=== PATIENT | female | born 1955 | race Caucasian/White ===

== ENCOUNTER 2023-06-30 16:08 | Emergency (ER) | payer MEDICARE, SELFPAY ==
--- NOTE | ~2023-06-30 | XR_ITS ---
EXAMINATION: XR lumbar spine 2-3V DATE: 06/30/2023 17:22 INDICATION: Low back pain TECHNIQUE: Anteroposterior and lateral views of the lumbar spine, and cone-down lateral view of the l umbosacral junction were obtained. COMPARISON: None. FINDINGS: There are 6 mm of anterolisthesis of L4 on L5 and 2 mm of anterolisthesis of L3 on L4. Ther e is no fracture. There is mild loss of intervertebral disc space height at L1-2 and L2-3. The verteb ral body heights are maintained. Small degenerative osteophytes project from the anterior endplates o f multiple vertebral bodies. There is moderate to severe facet joint osteoarthritis of the lower lumb ar spine. Calcified atherosclerosis is noted. There is mild spondylosis of the visualized lower thora cic spine. IMPRESSION: 1. Moderate lumbar spondylosis without acute findings. Reviewed, dictated and finalized at location F.
[2023-06-30 16:17] VITALS: BP 143/56; PULSE 62; RESP 16; TEMP 36.4; O2SAT 99
--- NOTE | 2023-06-30 17:11 | ED.GENADULT ---
HPI - General Adult General Chief complaint: Back Pain/Injury Stated complaint: Back Pain Source: patient Mode of arrival: ambulatory Limitations: no limitations History of Present Illness HPI narrative: Patient presents for evaluation of low back pain for last 2 days. She cannot identify any precipitating cause or injury. Pain was initially mild but has increased in severity. She states that the pain is primarily in the middle of her lumbar spine but radiates out bilaterally. She describes the pain as aching . She rates her pain 8/10 in severity. No pain in the lower extremities. No saddle anesthesia. No bladder/bowel incontinence. She was taking tylenol for her pain which initially helped, but has since lost efficacy. Denies any urinary symptoms. Related Data Allergies Allergy/AdvReac Type Severity Reaction Status Date / Time prendisone Allergy unknown Uncoded 06/30/23 17:49 Review of Systems Review of Systems: CONSTITUTIONAL: Denies fever, chills, or sweats. EYES: Denies visual changes, redness, or discharge. ENT: Denies rhinorrhea, congestion, sore throat, or otalgia. CARDIOVASCULAR: Denies chest pain, palpitations, or edema. RESPIRATORY: Denies cough or dyspnea. GASTROINTESTINAL: Denies abdominal pain, nausea, vomiting, or diarrhea. GENITOURINARY: Denies dysuria or hematuria. SKIN: Denies rash or itching. MUSCULOSKELETAL: Reports low back pain. Denies joint pain or myalgia. NEUROLOGIC: Denies headache, numbness, dizziness, or weakness. PSYCHIATRIC: Denies anxiety or depression. [facility] Past Medical History Medical History (Updated 06/30/23 @ 17:50 by INES Barbour, ) Atrial fibrillation Surgical History Surgical History History of surgery on arm Family History Family History Mother Family history non-contributory Social History Social History Substance use: never Living arrangements: with family Gender identity (if verbalized by the patient): Female Sexual Orientation (if Verbalized by the Patient): Straight or Heterosexual Spiritual care concerns: No Exam Narrative: GENERAL: Well-appearing, well-nourished, and in no acute distress. HEAD: Normocephalic, atraumatic. EYES: PERRLA and EOMI. ENT: Nares clear, no rhinorrhea or epistaxis. Mucous membranes moist. Oropharynx without tonsillar hypertrophy exudate or other lesions. Bilateral TMs pearly posey nonbulging NECK: Supple. No adenopathy or masses. No carotid bruits or JVD CHEST: Clear to auscultation. No respiratory distress. No wheezes rales or rhonchi HEART: Regular rate and rhythm. No murmur heard. Normal peripheral pulses. ABDOMEN: Soft, nontender, nondistended, normal active bowel sounds. EXTREMITIES: Normal range of motion. No edema. BACK: Tenderness diffusely in lumbar spinal region. Decreased flexion at hips bilaterally 2/2 pain SKIN: Warm, dry, no rash. NEURO: No focal deficits. Alert and oriented x3. PSYCH: Normal mood and affect. Course Course Emergency Course: This is a 68-year-old female who presented for evaluation of low back pain. X-ray showed spondylosis. Several medications in the past have been ineffective when we discussed discharge plan. Through shared decision making we opted to proceed with Flexeril as she has responded well to muscle relaxers in the past. Follow-up with primary provider. Go to the emergency department for worsening symptoms. Patient in agreement with of care Level of Care: Express Care Visit Vital Signs Vital signs: Vital Signs Temperature 36.4 C L 06/30/23 16:17 Pulse Rate 62 06/30/23 16:17 Respiratory Rate 16 06/30/23 16:17 Blood Pressure 143/56 H 06/30/23 16:17 Pulse Oximetry 99 06/30/23 16:17 Oxygen Delivery Room Air 06/30/23 16:17 Temperature 36.4 C L
== END 2023-06-30 18:00 | disposition home or self-care (01) ==
PROVIDERS: Emergency Provider Nurse Practitioner; PCP Family Medicine
DX: M47.816 Spondylosis without myelopathy or radiculopathy, lumbar region (principal); S39.012A Strain of muscle, fascia and tendon of lower back, initial encounter; X58.XXXA Exposure to other specified factors, initial encounter; I48.91 Unspecified atrial fibrillation
CPT/HCPCS: 72100; 81003; 99213; G0463